=== PATIENT | female | born 1990 | race African-American/Black ===

== ENCOUNTER 2021-07-13 14:44 | Emergency (ER) | payer MEDICAID ==
[~2021-07-13] VITALS: Ht 170.2 cm; Wt 90.9 kg
[2021-07-13 14:56] VITALS: BP 119/68; PULSE 93; TEMP 98.3
== END 2021-07-13 15:26 | disposition home or self-care (01) ==
LOC: COL.ER 14:44
DX: S30.861A Insect bite (nonvenomous) of abdominal wall, initial encounter (principal); W57.XXXA Bitten or stung by nonvenomous insect and other nonvenomous arthropods, initial encounter